=== PATIENT | female | born 1980 | race Caucasian/White ===

== ENCOUNTER 2017-10-15 05:18 | Emergency (ER) | payer MEDICAID, SELFPAY ==
[2017-10-15 05:30] VITALS: BP 140/95; PULSE 95; RESP 20; TEMP 37.7; O2SAT 96; BMI 40.2
--- NOTE | 2017-10-15 05:51 | HMH.EDFEV ---
ED Disposition Clinical Impression: Viral infection Disposition: Home, Self-Care Condition on Discharge: Good Instructions: DI for Fever (Symptom) -- Adult Additional Instructions: advil/tyenol and see pcp as needed Prescriptions: Benzonatate [Tessalon Perle 100mg Cap] 100 mg PO TID #30 cap Oseltamivir Phosphate [Tamiflu 75mg Capsule] 75 mg PO BID #10 cap - Critical Care Critical Care Time: No Attestation: On 10/15/17, the high probability of a clinically significant, sudden or life threatening deterioration of the following system(s) required my full and direct attention, intervention and personal management. The time I documented below is in addition to time spent performing reported procedures but includes the following listed in this critical care notation. Medical Decision Making - Medical Records Medical records reviewed: Yes: I reviewed the patient's medical records. Vital Signs: 10/15/17 05:30 Temperature 99.9 F H Temperature Source Oral Pulse Rate [Right Radial] 95 H Respiratory Rate 20 Blood Pressure [Right Arm] 140/95 Blood Pressure Mean [Right Arm] 110 Blood Pressure Source [Right Arm] Automatic Cuff Blood Pressure Position [Right Arm] Sitting 02 Sat by Pulse Oximetry 96 Oxygen Delivery Method Room Air - Lab Data Lab results reviewed: Yes: I reviewed the patient's lab results. Lab Results 10/15/17 05:50: Influenza Type A Ag Negative, Influenza Type B Ag Negative Orders (Tests/Meds): ED MEDICATIONS Discontinued Medications Generic Name Dose Route Start Last Admin Trade Name Freq PRN Reason Stop Dose Admin Acetaminophen 650 mg 10/15/17 05:59 10/15/17 06:03 Acetaminophen 325mg Tab PO 10/15/17 06:00 650 mg ONCE ONE Administration - Jose Francisco Inquiry Pt receiving controlled substance: No Fever HPI - General Chief Complaint: Fever Stated Complaint: Headache, fever, coughing,achy Time Seen by Provider: 10/15/17 05:51 Mode of Arrival: Ambulatory Source of Information: Patient, Medical Record Limitations: No Limitations Description of Symptoms (Recalled from ER Triage Doc. by RN): Pt. reports headache, chills, nausea, aching all over, and fever. 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 with no rash complaint: fever Onset (ago): day(s) Context: sick contacts Associated symptoms: chills - Related Data Home Medications Medication Instructions Recorded Confirmed omeprazole 20 mg capsule,delayed 20 mg PO ONCE 09/09/17 10/15/17 release Lisinopril [Prinivil 10mg Tablet] 10 mg PO ONCE 10/15/17 10/15/17 Previous Rx's Medication Instructions Recorded Benzonatate [Tessalon Perle 100mg 100 mg PO TID #30 cap 10/15/17 Cap] Oseltamivir Phosphate [Tamiflu 75 mg PO BID #10 cap 10/15/17 75mg Capsule] Allergies Allergy/AdvReac Type Severity Reaction Status Date / Time latex [LATEX] Allergy Unknown Verified 10/15/17 06:03 [facility] History I have reviewed the patient's past medical history: Yes Other Surgeries: Yes: , Dilation and Curettage Amputation: No Fractures: No - Social History Smoking Status: Current every day smoker Tobacco Type: cigarettes Alcohol Intake: never - Psychiatric History Expresses thoughts of harming self/others: None Suicide Plan Description: No Plan Family Hx:: Cancer, Diabetes, Hypertension 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
[2017-10-15 06:52] VITALS: BP 123/79; PULSE 80; RESP 16; TEMP 36.4; O2SAT 99
== END 2017-10-15 06:55 | disposition home or self-care (01) ==
PROVIDERS: Emergency Provider Emergency Medicine; Family Provider Physician Assistant
DX: B34.9 Viral infection, unspecified (principal); Z91.040 Latex allergy status; F17.210 Nicotine dependence, cigarettes, uncomplicated
CPT/HCPCS: 87275; 87276; 99282

== ENCOUNTER → 2018-03-20 11:06 | Outpatient (CLI) | payer MEDICAID, SELFPAY ==
--- NOTE | 2018-03-20 11:12 | XR_ITS ---
XR lumbar spine min 4V Ordering Physician: Jovanni Vilchis MD Patient Age: 37 years: Female HISTORY: ITS.REASON: LOW BACK PAIN W/LEFT SCIATICA Old fall. Left-sided back pain currently. TECHNIQUE: Five-view lumbar spine series. COMPARISON :October 2006 FINDINGS Vertebral bodies intact with normal alignment and no compression fractures. Disc spaces are fairly well maintained with only suggestion perhaps some mild L4/5 disc narrowing to the left lateral projection and lateral view.. borderline narrowing at L2/3 disc Only question scant degenerative facet changes lower L-spine. Minor levocurvature lower L-spine which could be merely positional. Pedicles and transverse processes intact. IUD in place . IMPRESSION: No prominent findings. Minor observations. Minor disc space narrowing L4/5 the left Borderline narrowing narrowing at L2/[address]
--- NOTE | 2018-03-20 11:12 | XR_ITS ---
XR hip LT 2-3V w/pelvis Ordering Physician: Jovanni Vilchis MD Patient Age: 37 years: Female HISTORY: ITS.REASON: LOW BACK PAIN W/LEFT SCIATICA Old fall with hip pain low back pain TECHNIQUE: Left hip: AP and frog-leg view left hip Right hip: AP and frog-leg view COMPARISON :None === LEFT HIP . Left hip intact joint space well maintained. Normal femoral head and neck with normal density & appearance. Slender femoral neck. Trochanteric region intact. Left hip joint space well maintained ==== RIGHT HIP. Right hip hip intact joint space well maintained. Normal femoral head and neck normal appearance. Slender femoral neck bilateral. Trochanteric region intact. Left hip joint space well maintained . ===== AP PELVIS IUD noted in place. Iliac bone and sacrum satisfactory. Question some upper normal sclerotic changes about the margins of left SI joint more so than right . Both SI joints remain patent with no atelectasis. Generous superior acetabular rim bilaterally. No significant appearing hypertrophy Scant levocurvature L-spine noted =IMPRESSION: ====== 1.. Right and left hip WNL. Intact with Joint spaces well-maintained. 2. Osseous pelvis intact. Borderline sclerotic left SI joint more than right. 3. IUD in place.
[2018-03-20 12:42] LABS: Basophils # 0.1 K/mm3 (0-0.2); Basophils % 0.6 % (0.1-2.0); Eosinophils # 0.3 K/mm3 (0.0-0.4); Eosinophils % 3.3 % (0.1-12.0); Hemoglobin 16.6 g/dL (12.2-16.2); Lymphocytes % 22.6 K/mm3 (10-50); Mean Corpuscular HGB Conc 33.3 g/dL (31.8-35.4); Mean Corpuscular Hemoglobin 29.4 pg (27.0-31.2); Mean Corpuscular Volume 88.1 fl (81-99); Monocytes # 0.4 K/mm3 (0.1-1.0); Neutrophils # 6.1 K/mm3 (1.8-7.8); Neutrophils % 68.5 % (37.0-80.0); Platelet Count 212 K/mm3 (142-424); Red Blood Count 5.67 M/mm3 (4.20-5.40); Red Cell Distribution Width 13.4 % (11.5-17.5); White Blood Count 8.8 K/mm3 (4.8-10.8)
[2018-03-20 13:31] LABS: Alanine Aminotransferase 28 U/L (12-78); Albumin Level 4.4 gm/dL (3.4-5.0); Albumin/Globulin Ratio 1.3 (1.1-1.8); Alkaline Phosphatase 109 U/L (46-116); Anion Gap 13.9 mEq/L (5-15); Aspartate Amino Transferase 12 U/L (15-37); Bilirubin,Total 0.4 mg/dL (0.2-1.0); Blood Urea Nitrogen 9 mg/dL (7-18); Calcium 8.9 mg/dL (8.5-10.1); Carbon Dioxide 26 mmol/L (21.0-32.0); Chloride 103 mmol/L (98-107); Chol/HDL Ratio 6.2 (1-3.5); Cholesterol 179 mg/dL (140-200); Creatinine,Serum 0.59 mg/dL (0.55-1.02); Estimated Glomerular Filt Rate 115 ml/min (>60); GFR (African American) 140 ML/MIN (>60); Globulin 3.3 gm/dl (1.3-3.2); Glucose 80 mg/dL (74-106); HDL Cholesterol 29 mg/dL (29-89); LDL Cholesterol 115 mg/dL (0-130); Potassium 3.9 mmoL/L (3.5-5.1); Sodium 139 mmol/L (136-145); Total Protein,Serum 7.7 gm/dL (6.4-8.2); Triglycerides 175 mg/dL (30-200); VLDL Cholesterol 35 mg/dL (0-40)
== END ==
PROVIDERS: PCP Internal Medicine Adolescent Medicine; Visit Provider Internal Medicine Adolescent Medicine
DX: M54.42 Lumbago with sciatica, left side (principal); I10 Essential (primary) hypertension
CPT/HCPCS: 36415; 72110; 73502; 80053; 80061; 85025

== ENCOUNTER → 2018-07-24 08:03 | Outpatient (CLI) | payer MEDICAID, SELFPAY ==
--- NOTE | 2018-07-24 08:25 | US_ITS ---
US abdomen limited History:Right upper quadrant pain Ordering Physician:Jovanni Vilchis MD Patient Age: 37 years Comparison:None Findings: Pancreas:Unremarkable. No obvious mass or abnormal fluid collection. No ductal dilatation Liver:No focal liver lesions demonstrated. Homogeneous echogenicity. No intrahepatic biliary ductal dilatation evident Right Kidney:Unremarkable. Normal size and echogenicity. No hydronephrosis Gallbladder:No gallstones, gallbladder wall thickening, pericholecystic fluid, or biliary dilatation. Impression:Negative gallbladder/right upper quadrant ultrasound
== END ==
PROVIDERS: PCP Internal Medicine Adolescent Medicine; Visit Provider Internal Medicine Adolescent Medicine
DX: R10.11 Right upper quadrant pain (principal)
CPT/HCPCS: 76705

== ENCOUNTER → 2019-01-20 09:58 | Outpatient (CLI) | payer MEDICAID, SELFPAY ==
--- NOTE | 2019-01-20 10:06 | NM_ITS ---
NM hepatobiliary w pharm HISTORY: ITS.REASON: RUQ PAIN ORDERING PHYSICIAN: Jovanni Vilchis MD PATIENT AGE: 38 years COMPARISON: None DOSE: 7.86MCI TC Choletec 2 MCG CCK INJ into RT ANT FINDINGS: Homogeneous activity is present within the hepatic parenchyma. Activity is present in the gallbladder by 10 minutes. Activity is present in the small bowel by 15 minutes. The gallbladder ejection fraction is calculated to be 94% The patient did not report pain or other symptoms during CCK infusion. IMPRESSION: Unremarkable hepatobiliary scan and gallbladder ejection fraction. No evidence of common or cystic duct obstruction with normal gallbladder ejection fraction
--- NOTE | 2019-01-20 10:51 | HMH.ITSHM ---
Current Home Medications as stated by this patient Elizabeth Alejandro or representative personal service. []OMEPRAZOLE LISINOPRIL ASA
== END ==
PROVIDERS: PCP Internal Medicine Adolescent Medicine; Visit Provider Internal Medicine Adolescent Medicine
DX: R10.11 Right upper quadrant pain (principal)
CPT/HCPCS: 78227; A9537; J2805

== ENCOUNTER → 2019-01-26 08:43 | Outpatient (CLI) | payer MEDICAID, SELFPAY ==
[2019-01-26 13:53] LABS: Basophils % 0.3 % (0.1-2.0); Eosinophils # 0.2 K/mm3 (0.0-0.4); Eosinophils % 2.4 % (0.1-12.0); Hematocrit 45.2 % (37.0-47.0); Hemoglobin 15.4 g/dL (12.2-16.2); Lymphocytes # 1.4 K/mm3 (0.7-4.5); Lymphocytes % 20.2 % (10-50); Mean Corpuscular HGB Conc 34.1 g/dL (31.8-35.4); Mean Corpuscular Volume 82.2 fl (81-99); Mean Platelet Volume 8.1 fl (7.4-10.4); Monocytes # 0.4 K/mm3 (0.1-1.0); Monocytes % 5.5 % (1.7-9.3); Neutrophils % 71.5 % (37.0-80.0); Platelet Count 206 K/mm3 (142-424); Red Blood Count 5.51 M/mm3 (4.20-5.40); Red Cell Distribution Width 13.5 % (11.5-17.5); White Blood Count 6.9 K/mm3 (4.8-10.8)
[2019-01-26 16:21] LABS: Anion Gap 15.9 mEq/L (5-15); Blood Urea Nitrogen 10 mg/dL (7-18); Carbon Dioxide 24 mmol/L (21.0-32.0); Chloride 103 mmol/L (98-107); Creatinine,Serum 0.67 mg/dL (0.55-1.02); Potassium 3.9 mmoL/L (3.5-5.1); Sodium 139 mmol/L (136-145)
[2019-01-26 16:22] LABS: Alanine Aminotransferase 35 U/L (12-78); Albumin Level 3.8 gm/dL (3.4-5.0); Albumin/Globulin Ratio 1.2 (1.1-1.8); Alkaline Phosphatase 109 U/L (46-116); Amylase 41 U/L (25-115); Aspartate Amino Transferase 18 U/L (15-37); Bilirubin,Total 0.5 mg/dL (0.2-1.0); Calcium 8.7 mg/dL (8.5-10.1); Estimated Glomerular Filt Rate 99 ml/min (>60); GFR (African American) 120 ML/MIN (>60); Globulin 3.1 gm/dl (1.3-3.2); Glucose 80 mg/dL (74-106); Lipase 88 u/L (73-393); Total Protein,Serum 6.9 gm/dL (6.4-8.2)
== END ==
PROVIDERS: PCP Internal Medicine Adolescent Medicine; Visit Provider Internal Medicine Adolescent Medicine
DX: R10.11 Right upper quadrant pain (principal)
CPT/HCPCS: 36415; 80053; 82150; 83690; 85025

== ENCOUNTER → 2021-02-16 13:21 | Outpatient (CLI) | payer OTHER, SELFPAY ==
--- NOTE | 2021-02-16 13:21 | US_ITS ---
PROCEDURE: US GALLBLADDER CLINICAL INDICATION: right upper quadrant pain COMPARISON: No exams were available for comparison FINDINGS: Pancreas: Unremarkable/Not well seen Liver: There is diminished echogenicity of the liver which is a nonspecific finding but could be seen with hepatitis. No focal liver lesions demonstrated.. There is appropriate direction of blood flow within a non dilated portal vein. Right kidney: Unremarkable appearing. No hydronephrosis. Gallbladder: No stones are evident. There is no gallbladder wall thickening. Common duct is normal in diameter. IMPRESSION: Negative gallbladder ultrasound. Decreased echogenicity of the liver nonspecific but may be seen with hepatitis. Dictated by: Shayne Galarza MD 02/16/2021 16:37 Shayne Galarza MD in [place] 02/16/2021 16:37
== END ==
PROVIDERS: PCP Internal Medicine Adolescent Medicine; Visit Provider Nurse Practitioner Obstetrics & Gynecology
DX: R10.11 Right upper quadrant pain (principal)
CPT/HCPCS: 76705

== ENCOUNTER → 2021-02-22 13:06 | Outpatient (CLI) | payer OTHER, SELFPAY ==
[2021-02-23 10:26] LABS: Hep A Ab, IgM Negative (Negative); Hepatitis B Core Antibody IgM Negative (Negative); Hepatitis B Surface Antigen Negative (Negative); Hepatitis C Antibody <0.1 s/co ratio (0.0-0.9)
== END ==
PROVIDERS: Visit Provider Nurse Practitioner Obstetrics & Gynecology
DX: Z01.419 Encounter for gynecological examination (general) (routine) without abnormal findings (principal); R10.11 Right upper quadrant pain
CPT/HCPCS: 36415; 80074

== ENCOUNTER → 2021-03-02 15:23 | Outpatient (CLI) | payer OTHER, SELFPAY ==
[2021-03-02 15:41] LABS: Basophils # 0.1 K/mm3 (0-0.2); Basophils % 1.1 % (0.1-2.0); Eosinophils # 0.2 K/mm3 (0.0-0.4); Eosinophils % 2.9 % (0.1-12.0); Hematocrit 39.7 % (37.0-47.0); Hemoglobin 15.5 g/dL (12.2-16.2); Lymphocytes # 1.6 K/mm3 (0.7-4.5); Lymphocytes % 23.5 % (10-50); Mean Corpuscular HGB Conc 39.2 g/dL (31.8-35.4); Mean Corpuscular Hemoglobin 34.7 pg (27.0-31.2); Mean Corpuscular Volume 88.5 fl (81-99); Mean Platelet Volume 9.7 fl (7.4-10.4); Monocytes # 0.5 K/mm3 (0.1-1.0); Monocytes % 7.1 % (1.7-9.3); Neutrophils # 4.6 K/mm3 (1.8-7.8); Neutrophils % 65.4 % (37.0-80.0); Platelet Count 173 K/mm3 (142-424); Red Blood Count 4.48 M/mm3 (4.20-5.40); Red Cell Distribution Width 13.5 % (11.5-17.5)
[2021-03-02 15:59] LABS: Chloride 105 mmol/L (98-107); Sodium 141 mmol/L (136-145)
[2021-03-02 16:00] LABS: Potassium 4.3 mmoL/L (3.5-5.1)
[2021-03-02 16:02] LABS: Alanine Aminotransferase 15 U/L (12-78); Albumin Level 4.5 g/dl (3.5-5.0); Albumin/Globulin Ratio 1.9 (1.1-1.8); Alkaline Phosphatase 90 U/L (38-126); Anion Gap 14.3 mEq/L (5-15); Aspartate Amino Transferase 24 U/L (14-36); Bilirubin,Total 0.6 mg/dl (0.2-1.3); Blood Urea Nitrogen 16 mg/dl (7-17); Carbon Dioxide 26 mmol/L (22.0-30.0); Cholesterol 162 mg/dl (140-200); Estimated Glomerular Filt Rate 93 ml/min (>60); GFR (African American) 113 ML/MIN (>60); Globulin 2.4 g/dL (1.3-3.2); Total Protein,Serum 6.9 g/dl (6.3-8.2); Triglycerides 114 mg/dl (30-150); VLDL Cholesterol 23 mg/dL (0-40)
[2021-03-02 16:03] LABS: Calcium 9.1 mg/dl (8.4-10.2); Chol/HDL Ratio 5.1 (1-3.5); Glucose 70 mg/dl (74-100); HDL Cholesterol 32 mg/dl (40-60)
[2021-03-02 16:15] LABS: Direct LDL Cholesterol 99.75 mg/dL (100-129)
[2021-03-02 16:36] LABS: Thyroid Stimulating Hormone 1.36 uIU/mL (0.465-4.68)
[2021-03-02 16:37] LABS: Ferritin 14.1 ng/ml (6.24-137)
== END ==
PROVIDERS: Visit Provider Nurse Practitioner Family
DX: Z00.00 Encounter for general adult medical examination without abnormal findings (principal); R10.11 Right upper quadrant pain; R71.8 Other abnormality of red blood cells
CPT/HCPCS: 80053; 80061; 82728; 84443; 85025

== ENCOUNTER 2021-04-29 09:02 | Emergency (ER) | payer OTHER, SELFPAY ==
[2021-04-29 09:05] VITALS: BP 125/78; PULSE 87; RESP 19; TEMP 37.1; O2SAT 100; BMI 40.2
[2021-04-29 09:54] VITALS: BP 125/78; PULSE 87; RESP 19; TEMP 37.1; O2SAT 100
--- NOTE | 2021-04-29 09:55 | HMH.EDUTC ---
[facility] – [place] Disposition Clinical Impression: Encounter for laboratory testing for COVID-19 virus Disposition: Home, Self-Care Condition on Discharge: Good Instructions: DI for COVID-19 (Suspected or Confirmed ), Preventing the Spread of Coronavirus Discharge Instructions Additional Instructions: *Monitor Temp, Over the counter Motrin or Tylenol as directed/as needed Tylenol every 4 hours and Motrin every 6 hours (as long as your family doctor has told you that you can take it) for fever or pain. and straight to ER if unable to lower temp less than 101.0 after medication given Follow up IMMEDIATELY for new or worsening symptoms or no Noticeable improvement over the next 48-72 hours. 911 for difficulty breathing or swallowing You were tested for today for COVID19 your test result should be back in the next 24-48 hours, you was [facility] you may check that often to see if your results are back You was given a handout with instructions for Self Quarantine and Self isolation for while you wait on test results and what to do if they are positive If you are positive the Health Dept will be contacting you also Make sure to take your Vitamins Vit. C Vit D and Zinc if you can take them Referrals: Jovanni Vilchis MD [Primary Care Provider] - As needed Forms: Work/School Release Time of Disposition: 09:59 Medical Decision Making - Jose Francisco Inquiry Pt receiving controlled substance: No Jose Francisco was queried for this patient: No Vital Signs: 04/29/21 09:05 Temperature 98.7 F Temperature Source Oral Pulse Rate [Right Brachial] 87 Respiratory Rate 19 Blood Pressure [Right Arm] 125/78 Blood Pressure Mean [Right Arm] 93 Blood Pressure Source [Right Arm] Automatic Cuff Blood Pressure Position [Right Arm] Sitting 02 Sat by Pulse Oximetry 100 Oxygen Delivery Method Room Air Orders (Tests/Meds): ORDERS Category Date Time Status Covid-19 Nasal PCR ([facility]) Routine Lab 04/29/21 09:30 Received [facility] [place] HPI - General Stated complaint: weakness, chills Time Seen by Provider: 04/29/21 09:56 Mode of Arrival: Ambulatory Source of Information: Patient Limitations: No Limitations Description of Symptoms (Recalled from Triage Doc. 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 - Related Data Home Medications Medication Instructions Recorded Confirmed omeprazole 20 mg capsule,delayed 20 mg PO ONCE 09/09/17 04/29/21 release Aspirin [Aspirin 81mg chewable 81 mg PO DAILY 04/29/21 04/29/21 tab] lisinopriL [Prinivil 10mg Tablet] 10 mg PO DAILY 04/29/21 04/29/21 Allergies Allergy/AdvReac Type Severity Reaction Status Date / Time latex [LATEX] Allergy Unknown Verified 02/13/21 09:16 - Worker's Comp Is this a Worker's Comp case?: No [facility] History - Hepatitis A Screen Drug use history?: No High risk sexual behaviors?: No History of sexually transmitted infection?: No Currently employed?: No Childcare worker?: No Do you have indoor plumbing?: Yes Do you have electricity?: Yes Attestation statement:: This patient has been screened for Hepatitis A risk factors. I have reviewed the patient's past medical history: Yes Comment: Bleeding Disorder Other Surgeries: Yes: , Dilation and Curettage Amputation: No Fractures: No Comment: D&C to remove cyst from ovaries - Social History Smoking Status: Current every d
== END 2021-04-29 10:02 | disposition home or self-care (01) ==
PROVIDERS: Emergency Provider Nurse Practitioner; PCP Internal Medicine Adolescent Medicine
DX: R53.83 Other fatigue (principal); R50.9 Fever, unspecified; R05 Cough; Z20.822 Contact with and (suspected) exposure to COVID-19
CPT/HCPCS: 99202; G0463; U0003

== ENCOUNTER 2021-05-03 10:05 | Emergency (ER) | payer OTHER, SELFPAY ==
[2021-05-03 11:02] VITALS: BP 141/90; PULSE 80; RESP 18; TEMP 36.7; O2SAT 98; BMI 32.6
--- NOTE | 2021-05-03 11:10 | HMH.EDUTC ---
[facility] – [place] Disposition Clinical Impression: Encounter for laboratory testing for COVID-19 virus Sinusitis Qualifiers: Sinusitis location: unspecified location Chronicity: unspecified Qualified Code(s): J32.9 - Chronic sinusitis, unspecified Disposition: Home, Self-Care Condition on Discharge: Good Instructions: Sinusitis, DI for Sinusitis, Doxycycline, Methylprednisolone, DI for COVID-19 (Suspected or Confirmed ), Preventing the Spread of Coronavirus Discharge Instructions Additional Instructions: *Monitor Temp, Over the counter Motrin or Tylenol as directed/as needed Tylenol every 4 hours and Motrin every 6 hours (as long as your family doctor has told you that you can take it) for fever or pain. and straight to ER if unable to lower temp less than 101.0 after medication given *Warm salt water gargles may help to soothe the throat *Throat Lozenges *Warm fluids like tea with honey may help to soothe the throat *Sleep elevated *Humidifier/Vaporizer *Flonase 2 sprays in each nostril daily but be aware that it may take 2-3 days before you notice improvement Follow up IMMEDIATELY for new or worsening symptoms or no Noticeable improvement over the next 48-72 hours. 911 for difficulty breathing or swallowing You were tested for today for COVID19 your test result should be back in the next 24-48 hours, you was given instructions on how to log on the [facility] portal for your results. If you do not have internet or access you may call the [facility]. You was given a handout with instructions for Self Quarantine and Self isolation for while you wait on test results and what to do if they are positive If you are positive the Health Dept will be contacting you also Make sure to take your Vitamins Vit. C Vit D and Zinc if you can take them Prescriptions: Doxycycline Monohydrate [Doxycycline [place] 100mg Tab] 100 mg PO Q12 7 Days #14 tab Transmission Status: Received by [facility] methylPREDNISolone [Medrol 4mg tab] 4 mg PO DIRECTED #21 tab Transmission Status: Received by [facility] guaiFENesin [Mucinex 600mg tablet] 600 mg PO BID PRN #20 tab PRN Reason: Congestion Transmission Status: Received by [facility] Referrals: Jovanni Vilchis MD [Primary Care Provider] - As needed Forms: Work/School Release Time of Disposition: 11:20 Medical Decision Making - Jose Francisco Inquiry Pt receiving controlled substance: No Jose Francisco was queried for this patient: No Vital Signs: 05/03/21 11:02 Temperature 98.1 F Temperature Source Oral Pulse Rate [Right] 80 Respiratory Rate 18 Blood Pressure [Right Arm] 141/90 H Blood Pressure Mean [Right Arm] 107 02 Sat by Pulse Oximetry 98 - Lab Data Lab results reviewed: Yes: I reviewed the patient's lab results. Orders (Tests/Meds): ORDERS Category Date Time Status Covid-19 Nasal PCR ([facility]) Routine Lab 05/03/21 10:51 Received [facility] [place] HPI - General Stated complaint: pos work covid test Time Seen by Provider: 05/03/21 11:10 Description of Symptoms (Recalled from Triage Doc. by RN): COVID, COUGH, CONGESTION, SINUS PRESSURE, BILATERAL EAR PAIN X1 WEEK HEENT Symptoms (Recalled from RN notes): No Resp Symptoms (Recalled from RN notes): No Skin Symptoms (Recalled from RN notes): No MS Symptoms (Recalled from RN notes): No Functional Status (Recalled from RN notes): WNL - History of Present Illness Provider Complaint: Patient states that she has been having sinus pain and pressure for over a week and felt like she was getting sinus infection states that since then she had several COVID test at work and they was negative but this morning it was positive States that she still feels like the pain and pressure from her sinuses is from a Sinus infection - Related Data Home Medications Medication Instructions Recorded Confirmed omeprazole 20 mg capsule,delayed 20 mg PO ONCE 09/09/17 04/29/21 release Aspirin [Aspirin 81mg chewable 81 mg PO DAILY 04/29/21
[2021-05-03 12:00] VITALS: BP 141/90; PULSE 80; RESP 18; TEMP 36.7; O2SAT 98
--- NOTE | 2021-05-04 09:11 | PC.NURSE ---
informed patent that she is positive
== END 2021-05-03 12:01 | disposition home or self-care (01) ==
PROVIDERS: Emergency Provider Nurse Practitioner; PCP Internal Medicine Adolescent Medicine
DX: U07.1 COVID-19 (principal)
CPT/HCPCS: 99202; G0463; U0003

== ENCOUNTER 2021-05-10 08:20 | Emergency (ER) | payer OTHER, SELFPAY ==
[2021-05-10 08:21] VITALS: BP 139/79; PULSE 77; RESP 18; TEMP 37.4; O2SAT 100; BMI 39.3
--- NOTE | 2021-05-10 08:23 | XR_ITS ---
PROCEDURE: XR CHEST PORTABLE CLINICAL HISTORY: covid, sob COMPARISON: CR CXR CHEST(2 VIEWS-NOT PORTABLE) from 06/10/2014 CR CXR CHEST(2 VIEWS-NOT PORTABLE) from 04/05/2015 FINDINGS: The cardiomediastinal silhouette and pulmonary vascularity are within normal limits. The lungs are clear without infiltrates, suspicious nodules, or pleural effusions. No acute bony abnormalities. IMPRESSION: No acute findings. Dictated by: Shayne Galarza MD 05/10/2021 09:23 Shayne Galarza MD in [place] 05/10/2021 09:23
--- NOTE | 2021-05-10 08:53 | ECG_ITS ---
APPROVED REPORT Exam: Resting ECG HR:62 bpm ECG Measurements Heart Rate 62 AXES WY 150 P 52 QRSd 90 QRS 35 QT 420 T 9 QTc 426 Conclusion Normal sinus rhythm Possible Left atrial enlargement Borderline ECG Electronically signed by : Jovanni Vilchis MD 05/10/2021 20:41:51
--- NOTE | 2021-05-10 08:57 | HMH.EDGENADL ---
ED Disposition Clinical Impression: COVID Disposition: Home, Self-Care Condition on Discharge: Good Instructions: Coronavirus Disease 2019 Referrals: Jovanni Vilchis MD [Primary Care Provider] - 3 days Time of Disposition: 09:58 - Critical Care Critical Care Time: No Attestation: On 05/10/21, the high probability of a clinically significant, sudden or life threatening deterioration of the following system(s) required my full and direct attention, intervention and personal management. The time I documented below is in addition to time spent performing reported procedures but includes the following listed in this critical care notation. Medical Decision Making - Medical Records Medical records reviewed: Yes: I reviewed the patient's medical records. - Jose Francisco Inquiry Pt receiving controlled substance: No Vital Signs: 05/10/21 08:21 Temperature 99.4 F Temperature Source Oral Pulse Rate [Radial] 77 Respiratory Rate 18 Blood Pressure [Right Arm] 139/79 Blood Pressure Mean [Right Arm] 99 Blood Pressure Position [Right Arm] Sitting 02 Sat by Pulse Oximetry 100 Oxygen Delivery Method Room Air - Lab Data Lab Results 05/10/21 09:26: WBC 6.2, RBC 5.34, Hgb 16.6 H, Hct 48.1 H, MCV 90.0, MCH 31.1, MCHC 34.6, RDW 12.5, Plt Count 153, MPV 8.0, Neut % (Auto) 71.6, Lymph % (Auto) 21.2, [place] % (Auto) 6.6, Eos % (Auto) 0.3, Baso % (Auto) 0.3, Neut # (Auto) 4.4, Lymph # (Auto) 1.3, [place] # (Auto) 0.4, Eos # (Auto) 0.0, Baso # (Auto) 0.0 05/10/21 09:26: Sodium 138, Potassium 3.7, Chloride 102, Carbon Dioxide 29, Anion Gap 10.7, BUN 12, Creatinine 0.60, Estimated Creat Clear 194, Estimated GFR 111, Est GFR ( Amer) 135, Glucose 89, Calcium 8.9, Total Bilirubin 0.8, AST 21, ALT 17, Alkaline Phosphatase 82, Total Protein 7.3, Albumin 4.2, Globulin 3.1, Albumin/Globulin Ratio 1.4 Result diagrams: 05/10/21 09:26 09/15/21 09:26 - ECG Data Tracing #1 I reviewed this ECG and interpreted as documented below: Normal sinus rhythm, 60 bpm, no ST elevation or depression, normal intervals, no ectopy. ECG initial impression date: 05/10/21 ECG initial impression time: 08:57 Medical Decision Narrative: 40yo F evaluated for tightness her chest. Patient is in no acute distress and ambulates through the emergency department without difficulty. She speaks in full sentences. She satting 98% on room air. Physical exam is unremarkable. EKG is normal as above. CBC, CMP, chest x-ray are pending. Laboratory studies are benign. Chest x-ray shows no acute finding. Patient is appropriate stable for discharge home. General Adult HPI - General Chief complaint: Chest Pain Stated complaint: covid pos, chest/rib tightness Time Seen by Provider: 05/10/21 08:57 Mode of Arrival: Ambulatory Limitations: No Limitations Description of Symptoms (Recalled from ER Triage Doc. by RN): TO ED PER PVT CAR PT STATES TESTED +COVID LAST . C/O CHEST TIGHTNESS, BURNING, SHARP PAIN IN BACK, COUGH, HEAD PRESSURE. PT DENIES SOB, FEVER - History of Present Illness HPI narrative: 40yo F with past medical history of GERD and hypertension presents the emergency department secondary to tightness in her chest. Patient tested positive for Covid last Saturday. She had received her first dose of Moderna prior to testing positive. She denies any significant fever. She denies nausea/vomiting/diarrhea. No cardiac history. Takes baby aspirin daily. Patient continues to smoke 1 pack/day. - Related Data Home Medications Medication Instructions Recorded Confirmed omeprazole 20 mg capsule,delayed 20 mg PO ONCE 09/09/17 04/29/21 release Aspirin [Aspirin 81mg chewable 81 mg PO DAILY 04/29/21 04/29/21 tab] lisinopriL [Prinivil 10mg Tablet] 10 mg PO DAILY 04/29/21 04/29/21 Previous Rx's Medication Instructions Recorded Doxycycline Monohydrate 100 mg PO Q12 7 Days #14 tab 05/03/21 [Doxycycline [place] 100mg Tab] guaiFENesin [Mucine
[2021-05-10 09:31] VITALS: BP 115/73; PULSE 68; O2SAT 99
[2021-05-10 09:44] LABS: Basophils % 0.3 % (0.1-2.0); Eosinophils % 0.3 % (0.1-12.0); Hematocrit 48.1 % (37.0-47.0); Hemoglobin 16.6 g/dL (12.2-16.2); Lymphocytes # 1.3 K/mm3 (0.7-4.5); Lymphocytes % 21.2 % (10-50); Mean Corpuscular HGB Conc 34.6 g/dL (31.8-35.4); Mean Corpuscular Hemoglobin 31.1 pg (27.0-31.2); Monocytes # 0.4 K/mm3 (0.1-1.0); Monocytes % 6.6 % (1.7-9.3); Neutrophils # 4.4 K/mm3 (1.8-7.8); Neutrophils % 71.6 % (37.0-80.0); Platelet Count 153 K/mm3 (142-424); Red Blood Count 5.34 M/mm3 (4.20-5.40); Red Cell Distribution Width 12.5 % (11.5-17.5); White Blood Count 6.2 K/mm3 (4.8-10.8)
[2021-05-10 09:45] LABS: Alanine Aminotransferase 17 U/L (12-78); Albumin Level 4.2 g/dl (3.5-5.0); Albumin/Globulin Ratio 1.4 (1.1-1.8); Alkaline Phosphatase 82 U/L (38-126); Anion Gap 10.7 mEq/L (5-15); Aspartate Amino Transferase 21 U/L (14-36); Bilirubin,Total 0.8 mg/dl (0.2-1.3); Blood Urea Nitrogen 12 mg/dl (7-17); Calcium 8.9 mg/dl (8.4-10.2); Carbon Dioxide 29 mmol/L (22.0-30.0); Chloride 102 mmol/L (98-107); Creatinine Clearance Estimated 194 mL/min (50-200); Estimated Glomerular Filt Rate 111 ml/min (>60); GFR (African American) 135 ML/MIN (>60); Globulin 3.1 g/dL (1.3-3.2); Glucose 89 mg/dl (74-100); Potassium 3.7 mmoL/L (3.5-5.1); Sodium 138 mmol/L (136-145); Total Protein,Serum 7.3 g/dl (6.3-8.2)
[2021-05-10 10:00] VITALS: BP 112/75; PULSE 70; O2SAT 97
[2021-05-10 10:27] VITALS: BP 132/74; PULSE 78; RESP 18; TEMP 37.2; O2SAT 99
== END 2021-05-10 10:28 | disposition home or self-care (01) ==
PROVIDERS: Emergency Provider Family Medicine; PCP Internal Medicine Adolescent Medicine
DX: U07.1 COVID-19 (principal); K21.9 Gastro-esophageal reflux disease without esophagitis; I10 Essential (primary) hypertension; Z91.040 Latex allergy status; F17.210 Nicotine dependence, cigarettes, uncomplicated
CPT/HCPCS: 71045; 80053; 85025; 93005; 99283

== ENCOUNTER → 2021-08-21 08:49 | Outpatient (CLI) | payer OTHER, SELFPAY | PROVIDERS: Visit Provider Surgery | DX: Z01.812 Encounter for preprocedural laboratory examination (principal); Z11.52 Encounter for screening for COVID-19; Z12.11 Encounter for screening for malignant neoplasm of colon | CPT/HCPCS: C9803; U0003; U0005 ==

== ENCOUNTER 2021-08-23 06:12 | Day surgery (SDC) | payer OTHER, SELFPAY ==
[2021-08-15 13:42] VITALS: BMI 37.8
[2021-08-23] VITALS (7 sets, daily range): BP systolic 94–129; BP diastolic 60–75; PULSE 62–78; RESP 14–18; TEMP 36.1–36.7; O2SAT 98–100
[2021-08-23 06:49] LABS: Urine Pregnancy, HCG Qual. Negative (Negative)
--- NOTE | 2021-08-23 07:23 | HMH.ANESCL ---
[facility] Anesthesia Checklist - Structural Data Admitted From: Home Planned Operative Procedure/s: colonoscopy Consent for Planned Operative Procedure(s) Verified: Yes - Airway Assessment C-Spine Mobility Assessed: Yes TMJ Mobility Assessed: Yes Dentition: Good Dentition - Neurological Assessment Level of Consciousness: Awake, Alert, Appropriate - Anesthesia Plan Anesthesia Risk discussed: Yes Anesthesia Plan: Patient unable to respond/answer ASA Class: II Anesthesia Type: [facility] History I have reviewed the patient's past medical history: Yes Medical History: Reports:: Hypertension Denies:: Cancer, Diabetes Mellitus Type 1, Diabetes Mellitus Type 2, Internal Pacemaker, MRSA, Seizures *Have you ever received a pneumonia vaccine?: No *Have you received a flu vaccine this season?: No Anesthesia experience/problems:: none Other Surgeries: Yes: , Dilation and Curettage. 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
--- NOTE | 2021-08-23 07:58 | HMH.SCOPE ---
- Procedure: Date: 08/23/21 Patient Date of :: 1980 Procedure Performed:: Total colonoscopy Indications:: Patient is a 40-year-old female from [place] referred by Dr. Jovanni Vilchis for colonoscopy. She is employed at [employer]. Apparently she does have some right upper quadrant pain described as burning radiating around her right side and into her back. She did previously undergo colonoscopy and upper endoscopy by Dr. Gaspar. Performing Provider:: Iron Walls MD Referring Provider:: Jovanni Vilchis MD Sedation:: MAC sedation Procedure:: Patient was taken to endoscopy procedure room and positioned in lateral decubitus position. Adequate intravenous sedation was achieved with anesthesia titration of propofol. Variable stiffness Olympus colonoscope was inserted via the anus. It was advanced to the cecum with some minor difficulty due to floppiness and redundancy of the sigmoid colon. Ileocecal valve and appendiceal orifice were clearly identified. Colonic preparation was good and visualization was good. Colonoscope was slowly withdrawn through the colon with careful surveillance. Several biopsies were obtained of the right colon due to her symptomatology. However, this appeared grossly normal. A few random left colon biopsies were obtained. Retroflexion revealed no evidence of any pathologic internal hemorrhoids. Colonoscope was withdrawn. Findings:: Essentially normal colonoscopy Recommendations:: We will plan to follow-up on histopathology of random right and left colon biopsies. Etiology of abdominal pain appears to be likely noncolonic Complications:: None immediately apparent Estimated blood obtained (mL): 2
== END 2021-08-23 08:49 | disposition home or self-care (01) ==
LOC: OUTP 06:13
PROVIDERS: PCP Internal Medicine Adolescent Medicine; Visit Provider Surgery
PROC: 0DJD8ZZ Inspection of Lower Intestinal Tract, Via Natural or Artificial Opening Endoscopic (ICD-10-PCS; CPT 45380; principal; 2021-08-23 07:30)
DX: R10.11 Right upper quadrant pain (principal); K56.2 Volvulus; I10 Essential (primary) hypertension; K21.9 Gastro-esophageal reflux disease without esophagitis; Z80.9 Family history of malignant neoplasm, unspecified; Z83.3 Family history of diabetes mellitus; Z82.49 Family history of ischemic heart disease and other diseases of the circulatory system; Z91.040 Latex allergy status
CPT/HCPCS: 45380; 81025

== ENCOUNTER 2021-10-06 18:05 | Emergency (ER) | payer OTHER, SELFPAY ==
[2021-10-06 18:16] VITALS: BP 126/83; PULSE 77; RESP 18; TEMP 37; O2SAT 99; BMI 35.6
--- NOTE | 2021-10-06 18:16 | HMH.EDUTC ---
[facility] [place] Disposition Clinical Impression: Laryngitis Disposition: Home, Self-Care Condition on Discharge: Good Instructions: DI for Laryngitis Prescriptions: methylPREDNISolone [Medrol 4mg tab] 4 mg PO DIRECTED #21 tab Transmission Status: Pending to [facility] Promethazine/Dextromethorphan [Promethazine-Dm Syrup] 5 ml PO Q4HP PRN 10 Days #180 ml MDD 30ML/DAY PRN Reason: Cough Transmission Status: Pending to [facility] Referrals: Jovanni Vilchis MD [Primary Care Provider] - Time of Disposition: 19:23 Medical Decision Making - Jose Francisco Inquiry Pt receiving controlled substance: No Vital Signs: 10/06/21 18:16 Temperature 98.6 F Temperature Source Oral Pulse Rate [Brachial] 77 Respiratory Rate 18 Blood Pressure [Right Arm] 126/83 Blood Pressure Mean [Right Arm] 97 Blood Pressure Source [Right Arm] Automatic Cuff Blood Pressure Position [Right Arm] Sitting 02 Sat by Pulse Oximetry 99 Oxygen Delivery Method Room Air - Lab Data Lab results reviewed: Yes: I reviewed the patient's lab results. Lab Results 10/06/21 18:20: Group A Strep Rapid Negative Orders (Tests/Meds): ORDERS Category Date Time Status Strep Screen Confirmation Stat Micro 10/06/21 18:20 Received [facility] [place] HPI - General Stated complaint: sore throat Time Seen by Provider: 10/06/21 18:16 - History of Present Illness Provider Complaint: Sore throat X 4 days. Losing voice. Has drainage. Tongue feels weird. No fever. Daughter has strep. Works at [employer] - has had 3 negative COVID tests this week. Onset (ago): day(s) (4) Location: mouth Relieving factors: none Exacerbating factors: none Associated symptoms: malaise Treatments prior to arrival: none - Related Data Home Medications Medication Instructions Recorded Confirmed omeprazole 20 mg capsule,delayed 20 mg PO ONCE 09/09/17 04/29/21 release Aspirin [Aspirin 81mg chewable 81 mg PO DAILY 04/29/21 04/29/21 tab] lisinopriL [Prinivil 10mg Tablet] 10 mg PO DAILY 04/29/21 04/29/21 Previous Rx's Medication Instructions Recorded Promethazine/Dextromethorphan 5 ml PO Q4HP PRN 10 Days #180 ml 02/11/22 [Promethazine-Dm Syrup] MDD 30ML/DAY methylPREDNISolone [Medrol 4mg 4 mg PO DIRECTED #21 tab 10/06/21 tab] Allergies Allergy/AdvReac Type Severity Reaction Status Date / Time latex [LATEX] Allergy Unknown Verified 08/15/21 13:27 [facility] History - Hepatitis A Screen Attestation statement:: This patient has been screened for Hepatitis A risk factors. I have reviewed the patient's past medical history: Yes Medical History: Reports:: Hypertension Denies:: Cancer, Diabetes Mellitus Type 1, Diabetes Mellitus Type 2, Internal Pacemaker, MRSA, Seizures Comment: Bleeding Disorder Other Surgeries: Yes: , Dilation and Curettage. No: Pacemaker Amputation: No Fractures: No Comment: D&C to remove cyst from ovaries - Social History Smoking Status: Current every day smoker Tobacco Type: cigarettes # Packs/Day (cigarettes): 1 Alcohol Intake: never Substance Use Type: denies use Occupational Status: other Housing: house Household Members: spouse, family Family Hx:: Cancer, Diabetes, Hypertension [employer] history: Abnormal Uterine Bleeding Comment: LAST PAP:12/17/2016,WNL. 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 Negative ,Tesfaye's Palsey during ,PIH ROS Obtained: Yes All systems reviewed & no additional complaints - Constitutional Constitutional: Denies fever(s), Reports malaise - ENT Ears, Nose, Mouth, and Throat: Reports sore throat, Reports throat swelling Physical Exam - General General appearance: alert, in no apparent distress - Head Head exam: normocephalic - Eye Eye exam: Present: PERRL - ENT ENT exam: Present: mucous membranes moist, TM's normal bilaterally - Expanded ENT Exam Nose exam: Absent: sinus tenderness Throat exam: Present: tonsillar erythema, tonsillomegaly - Neck Neck exam: Present: normal insp
[2021-10-06 19:17] LABS: Strep Scrn Group A (Rapid) Negative (Negative)
[2021-10-06 19:29] VITALS: BP 126/83; PULSE 77; RESP 18; TEMP 37; O2SAT 99
== END 2021-10-06 19:29 | disposition home or self-care (01) ==
PROVIDERS: Emergency Provider Physician Assistant; PCP Internal Medicine Adolescent Medicine
DX: J04.0 Acute laryngitis (principal); I10 Essential (primary) hypertension; F17.210 Nicotine dependence, cigarettes, uncomplicated
CPT/HCPCS: 87430; 96372; 99202; G0463; J1040

== ENCOUNTER 2021-11-21 09:42 | Emergency (ER) | payer OTHER, SELFPAY ==
[2021-11-21 11:13] VITALS: BP 155/89; PULSE 87; RESP 16; TEMP 37; O2SAT 98; BMI 37.5
[2021-11-21 11:25] LABS: UTC Influenza A Antigen Negative (Negative); UTC Influenza B Antigen Negative (Negative)
--- NOTE | 2021-11-21 11:47 | HMH.EDUTC ---
[facility] [place] Clinical Impression: Viral upper respiratory illness Disposition: Home, Self-Care Condition on Discharge: Good Instructions: DI for Viral Upper Respiratory Infection -- Adult, Cough Additional Instructions: *Monitor Temp, Over the counter Motrin or Tylenol as directed/as needed Tylenol every 4 hours and Motrin every 6 hours (as long as your family doctor has told you that you can take it) for fever or pain. and straight to ER if unable to lower temp less than 101.0 after medication given *Warm salt water gargles may help to soothe the throat *Throat Lozenges *Warm fluids like tea with honey may help to soothe the throat *Sleep elevated *Humidifier/Vaporizer *Flonase 2 sprays in each nostril daily but be aware that it may take 2-3 days before you notice improvement Take medication as prescribed Follow up IMMEDIATELY for new or worsening symptoms or no Noticeable improvement over the next 48-72 hours. 911 for difficulty breathing or swallowing Prescriptions: Promethazine/Dextromethorphan [Promethazine-Dm Syrup] 2.5 - 5 ml PO Q4H PRN #150 ml PRN Reason: Cough Transmission Status: Pending to [facility] Referrals: Jovanni Vilchis MD [Primary Care Provider] - As needed Time of Disposition: 11:53 Medical Decision Making - Jose Francisco Inquiry Pt receiving controlled substance: No Jose Francisco was queried for this patient: No Vital Signs: 11/21/21 11:13 Temperature 98.6 F Temperature Source Oral Pulse Rate [Left] 87 Respiratory Rate 16 Blood Pressure [Right Arm] 155/89 H Blood Pressure Mean [Right Arm] 111 02 Sat by Pulse Oximetry 98 - Lab Data Lab results reviewed: Yes: I reviewed the patient's lab results. Lab Results 11/21/21 11:12: Influenza Type A Ag Negative, Influenza Type B Ag Negative [facility] [place] - General Stated complaint: congestion, h/a, cough Time Seen by Provider: 11/21/21 11:47 Mode of Arrival: Ambulatory Source of Information: Patient Limitations: No Limitations Description of Symptoms (Recalled from Triage Doc. by RN): pt c/o nasal congestion, VASQUEZ and cough x1wk. HEENT Symptoms (Recalled from RN notes): Yes Resp Symptoms (Recalled from RN notes): Yes Skin Symptoms (Recalled from RN notes): No MS Symptoms (Recalled from RN notes): No Functional Status (Recalled from RN notes): wnl - History of Present Illness Provider Complaint: Patient states that she has been havign sinus congestion and drainage along with cough States that her daughter is having similar symptoms State that today she was still not feeling well so she came in to get checked - Related Data Home Medications Medication Instructions Recorded Confirmed omeprazole 20 mg capsule,delayed 20 mg PO ONCE 09/09/17 04/29/21 release Aspirin [Aspirin 81mg chewable 81 mg PO DAILY 04/29/21 04/29/21 tab] lisinopriL [Prinivil 10mg Tablet] 10 mg PO DAILY 04/29/21 04/29/21 Previous Rx's Medication Instructions Recorded Promethazine/Dextromethorphan 5 ml PO Q4HP PRN 10 Days #180 ml 10/06/21 [Promethazine-Dm Syrup] MDD 30ML/DAY methylPREDNISolone [Medrol 4mg 4 mg PO DIRECTED #21 tab 10/06/21 tab] Promethazine/Dextromethorphan 2.5 - 5 ml PO Q4H PRN #150 ml 11/21/21 [Promethazine-Dm Syrup] Allergies Allergy/AdvReac Type Severity Reaction Status Date / Time latex [LATEX] Allergy Unknown Verified 08/15/21 13:27 - Worker's Comp Is this a Worker's Comp case?: No [facility] History - Hepatitis A Screen Drug use history?: No High risk sexual behaviors?: No History of sexually transmitted infection?: No Currently employed?: No Childcare worker?: No Do you have indoor plumbing?: Yes Do you have electricity?: Yes Attestation statement:: This patient has been screened for Hepatitis A risk factors. I have reviewed the patient's past medical history: Yes Medical History: Reports:: Hypertension Denies:: Cancer, Diabetes Mellitus Type 1, Diabetes Mellitus Type 2, Internal P
[2021-11-21 12:06] VITALS: BP 155/89; PULSE 87; RESP 16; TEMP 37
== END 2021-11-21 12:07 | disposition home or self-care (01) ==
PROVIDERS: Emergency Provider Nurse Practitioner; PCP Internal Medicine Adolescent Medicine
DX: J06.9 Acute upper respiratory infection, unspecified (principal); I10 Essential (primary) hypertension; F17.210 Nicotine dependence, cigarettes, uncomplicated
CPT/HCPCS: 87804; 99212; G0463

== ENCOUNTER 2021-12-14 15:22 | Emergency (ER) | payer OTHER, SELFPAY ==
[2021-12-14 15:22] VITALS: BP 127/76; PULSE 84; RESP 18; TEMP 37.3; O2SAT 98; BMI 37.7
--- NOTE | 2021-12-14 16:01 | HMH.EDUTC ---
[facility] [place] Clinical Impression: Sinusitis Qualifiers: Sinusitis location: unspecified location Chronicity: unspecified Qualified Code(s): J32.9 - Chronic sinusitis, unspecified Disposition: Home, Self-Care Condition on Discharge: Good Instructions: Sinusitis, DI for Sinusitis Additional Instructions: *Monitor Temp, Over the counter Motrin or Tylenol as directed/as needed Tylenol every 4 hours and Motrin every 6 hours (as long as your family doctor has told you that you can take it) for fever or pain. and straight to ER if unable to lower temp less than 101.0 after medication given *Warm salt water gargles may help to soothe the throat *Throat Lozenges *Warm fluids like tea with honey may help to soothe the throat *Sleep elevated *Humidifier/Vaporizer Take medication as prescribed Follow up IMMEDIATELY for new or worsening symptoms or no Noticeable improvement over the next 48-72 hours. 911 for difficulty breathing or swallowing Prescriptions: methylPREDNISolone [Medrol 4mg tab] 4 mg PO DIRECTED #21 tab Transmission Status: Pending to [facility] Azithromycin [Z-Derrick 250mg Tab] 250 mg PO DIRECTED #6 tab Transmission Status: Pending to [facility] Referrals: Jovanni Vilchis MD [Primary Care Provider] - As needed Time of Disposition: 16:09 Medical Decision Making - Jose Francisco Inquiry Pt receiving controlled substance: No Jose Francisco was queried for this patient: No Vital Signs: 12/14/21 15:22 Temperature 99.2 F Temperature Source Oral Pulse Rate [Left Radial] 84 Respiratory Rate 18 Blood Pressure [Right Arm] 127/76 Blood Pressure Mean [Right Arm] 93 Blood Pressure Source [Right Arm] Automatic Cuff Blood Pressure Position [Right Arm] Sitting 02 Sat by Pulse Oximetry 98 Oxygen Delivery Method Room Air [facility] [place] - General Chief complaint: Upper Respiratory Infection Stated complaint: ear ache Time Seen by Provider: 12/14/21 16:05 Mode of Arrival: Ambulatory Source of Information: Patient Limitations: No Limitations Description of Symptoms (Recalled from Triage Doc. by RN): SINUS INFECTION, EARS HURTING, DRAINAGE IN EAR, SINUS PRESSURE HEENT Symptoms (Recalled from RN notes): Yes Resp Symptoms (Recalled from RN notes): No Skin Symptoms (Recalled from RN notes): No MS Symptoms (Recalled from RN notes): No Functional Status (Recalled from RN notes): N/A - History of Present Illness Provider Complaint: Patient states that she has been having sinus pain and pressure and pressure like feeling in both ears States that she noticed she had some drainage from her left ear earlier today States that she feels like she has a sinus infection and the fluid will move when she moves or turns her head - Related Data Home Medications Medication Instructions Recorded Confirmed omeprazole 20 mg capsule,delayed 20 mg PO ONCE 09/09/17 04/29/21 release Aspirin [Aspirin 81mg chewable 81 mg PO DAILY 04/29/21 04/29/21 tab] lisinopriL [Prinivil 10mg Tablet] 10 mg PO DAILY 04/29/21 04/29/21 Previous Rx's Medication Instructions Recorded Promethazine/Dextromethorphan 5 ml PO Q4HP PRN 10 Days #180 ml 10/06/21 [Promethazine-Dm Syrup] MDD 30ML/DAY methylPREDNISolone [Medrol 4mg 4 mg PO DIRECTED #21 tab 10/06/21 tab] Promethazine/Dextromethorphan 2.5 - 5 ml PO Q4H PRN #150 ml 11/21/21 [Promethazine-Dm Syrup] Azithromycin [Z-Derrick 250mg Tab] 250 mg PO DIRECTED #6 tab 12/14/21 methylPREDNISolone [Medrol 4mg 4 mg PO DIRECTED #21 tab 12/14/21 tab] Allergies Allergy/AdvReac Type Severity Reaction Status Date / Time latex [LATEX] Allergy Unknown Verified 08/15/21 13:27 - Worker's Comp Is this a Worker's Comp case?: No Is this an H Worker's Comp?: No Is this a [place] Worker's Comp?: No [facility] History - Hepatitis A Screen Drug use history?: No High risk sexual behaviors?: No History of sexually transmitted infection?: No Currently employed?:
[2021-12-14 16:14] VITALS: BP 127/76; PULSE 84; RESP 17; TEMP 37.2; O2SAT 99
== END 2021-12-14 16:18 | disposition home or self-care (01) ==
PROVIDERS: Emergency Provider Nurse Practitioner; PCP Internal Medicine Adolescent Medicine
DX: J32.9 Chronic sinusitis, unspecified (principal); H92.02 Otalgia, left ear; J06.9 Acute upper respiratory infection, unspecified; I10 Essential (primary) hypertension; D68.9 Coagulation defect, unspecified; F17.210 Nicotine dependence, cigarettes, uncomplicated; Z79.52 Long term (current) use of systemic steroids; Z79.82 Long term (current) use of aspirin; Z79.899 Other long term (current) drug therapy; Z91.040 Latex allergy status
CPT/HCPCS: 99213; G0463

== ENCOUNTER 2023-07-08 09:27 | Emergency (ER) | payer OTHER, SELFPAY ==
--- NOTE | 2023-07-08 09:39 | EXP.UTC ---
Discharge Plan Disposition Patient Disposition: Home, Self-Care Condition: Good Prescriptions Prescriptions: New benzonatate [benzonatate] 100 mg capsule 100 mg PO TIDP PRN (Reason: Cough) Qty: 30 0RF methylprednisolone 4 mg Tablets,Dose Pack 4 mg PO DIRECTED Qty: 21 0RF amoxicillin [amoxicillin] 875 mg tablet 875 mg PO Q12H Qty: 20 0RF No Action omeprazole 20 mg capsule,delayed release(DR/EC) 20 mg PO ONCE lisinopril 10 MG tablet 10 mg PO DAILY aspirin 81 MG tablet,chewable 81 mg PO DAILY Referrals Follow up/Referrals: Kiana Reinoso [Primary Care Provider] - See instructions Activity Restrictions/Add. Instructions Additional Instructions/Restrictions: Drink plenty of fluids. Take tylenol or ibuprofen for pain or fever. Take the medications as directed. Follow up with your regular doctor. GO TO THE ER FOR ANY WORSENING SYMPTOMS Clinical Impressions Clinical Impression: Sinusitis, Bronchitis Stand Alone Forms Stand Alone Forms: Work/School Release Instructions Patient Instructions: Sinusitis, DI for Sinusitis Discharge ED Provider: Steve Cooper [facility] General Stated complaint: congestion, cough Time Seen by Provider: 07/08/23 09:39 History of Present Illness Provider Complaint: She states that for the past 2 weeks she has had sinus congestion. She states that his symptoms are worsening. Related Data Home Medications Medication Instructions Recorded Confirmed omeprazole 20 mg capsule,delayed 20 mg PO ONCE GERD 09/09/17 07/08/23 release aspirin 81 mg chewable tablet 81 mg PO DAILY Heart disease 04/29/21 07/08/23 lisinopril 10 mg tablet 10 mg PO DAILY Hypertension 04/29/21 07/08/23 Previous Rx's Medication Instructions Recorded amoxicillin 875 mg tablet 875 mg PO Q12H #20 tabs 07/08/23 benzonatate 100 mg capsule 100 mg PO TIDP PRN Cough #30 caps 07/08/23 methylprednisolone 4 mg tablets in 4 mg PO DIRECTED #21 tabs 07/08/23 a dose pack Allergies Allergy/AdvReac Type Severity Reaction Status Date / Time latex [LATEX] Allergy Unknown Verified 07/08/23 09:[address] [facility] Disclaimer: The information contained in this section may have been updated after the patient was seen, as this information can be updated by other users. 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 current occupational exposures/hazards: No caffeine: Yes ROS Obtained: Yes All systems reviewed & no additional complaints except as documented Constitutional Constitutional: Reports poor appetite Eyes Eyes: Reports system reviewed and no additional complaints, except as documented ENT Ears, Nose, Mouth, and Throat: Reports as per HPI Cardiovascular Cardiovascular: Reports system reviewed and no additional complaints, except as documented and Denies chest pain Respiratory Respiratory: Denies shortness of breath, Reports chest congestion, Reports cough, Denies stridor and Denies wheezing Gastrointestinal Gastrointestingal: Reports system reviewed and no additional complaints, except as documented; Denies abdominal pain, diarrhea or vomiting Musculoskeletal Musculoskeletal: Reports system reviewed and no additional complaints, except as documented and Denies arthralgias Integumentary/Breasts Skin/Breast: Reports system reviewed and no additional complaints, except as documented and Denies rash Neurologic Neurologic: Denies paresthesias Allergic/Immunologic Allergic/Immunologic: Denies wheezing Physical Exam General General appearance: alert and in no apparent distress Head Head exam: atraumatic
[2023-07-08 09:40] VITALS: BP 134/94; PULSE 77; RESP 18; TEMP 36.9; O2SAT 98; BMI 35.5
[2023-07-08 10:12] VITALS: BP 134/94; PULSE 77; RESP 18; TEMP 36.6; O2SAT 98
== END 2023-07-08 10:12 | disposition home or self-care (01) ==
PROVIDERS: Emergency Provider Nurse Practitioner Family; PCP Nurse Practitioner Family
DX: J20.9 Acute bronchitis, unspecified (principal); J01.90 Acute sinusitis, unspecified; R09.81 Nasal congestion; R05.9 Cough, unspecified; F17.210 Nicotine dependence, cigarettes, uncomplicated
CPT/HCPCS: 99212; 99214; G0463

== ENCOUNTER 2024-03-08 08:04 | Emergency (ER) | payer OTHER, SELFPAY ==
--- NOTE | 2024-03-08 08:09 | EXP.UTC ---
Discharge Plan Disposition Patient Disposition: Home, Self-Care Condition: Good Prescriptions Prescriptions: New benzonatate 100 mg capsule 100 mg PO TIDP PRN (Reason: Cough) Qty: 30 0RF methylprednisolone 4 mg Tablets,Dose Pack 4 mg PO DIRECTED 6 Days Qty: 21 0RF Rx Instructions: Take 1 pack as directed for 6 days cefdinir 300 mg capsule 300 mg PO BID Qty: 20 0RF No Action omeprazole 20 mg capsule,delayed release(DR/EC) 20 mg PO ONCE lisinopril 10 MG tablet 10 mg PO DAILY aspirin 81 MG tablet,chewable 81 mg PO DAILY benzonatate [benzonatate] 100 mg capsule 100 mg PO TIDP PRN (Reason: Cough) Qty: 30 0RF methylprednisolone 4 mg Tablets,Dose Pack 4 mg PO DIRECTED Qty: 21 0RF amoxicillin [amoxicillin] 875 mg tablet 875 mg PO Q12H Qty: 20 0RF Referrals Follow up/Referrals: Kiana Reinoso [Primary Care Provider] - See instructions Activity Restrictions/Add. Instructions Additional Instructions/Restrictions: Drink plenty of fluids. Take tylenol or ibuprofen for pain or fever. Take the medications as directed. Follow up with your regular doctor. GO TO THE ER FOR ANY WORSENING SYMPTOMS We will culture the urine. That will tell what bacteria is causing your infection and which antibiotics will treat it best. Sometimes the first antibiotic we prescribe turns out to not work against different bacteria. So, make sure you follow up within 3 days if you are not getting better. Clinical Impressions Clinical Impression: Sinusitis, UTI (urinary tract infection), Otitis media Instructions Patient Instructions: Middle Ear Infection, Urine Culture, DI for Sinusitis, DI for Urinary Tract Infection (UTI) Discharge ED Provider: Steve Cooper [facility] General Stated complaint: sinus/ear congestion Time Seen by Provider: 03/08/24 08:09 History of Present Illness Provider Complaint: She states that for the past 3 days she has had worsening right ear pain and sinus congestion. She also has dysuria and urinary frequency. Related Data Home Medications Medication Instructions Recorded Confirmed omeprazole 20 mg capsule,delayed 20 mg PO ONCE GERD 09/09/17 03/08/24 release aspirin 81 mg chewable tablet 81 mg PO DAILY Heart disease 04/29/21 07/08/23 lisinopril 10 mg tablet 10 mg PO DAILY Hypertension 04/29/21 03/08/24 Previous Rx's Medication Instructions Recorded amoxicillin 875 mg tablet 875 mg PO Q12H #20 tabs 07/08/23 benzonatate 100 mg capsule 100 mg PO TIDP PRN Cough #30 caps 07/08/23 methylprednisolone 4 mg tablets in 4 mg PO DIRECTED #21 tabs 07/08/23 a dose pack benzonatate 100 mg capsule 100 mg PO TIDP PRN Cough #30 caps 03/08/24 cefdinir 300 mg capsule 300 mg PO BID #20 caps 03/08/24 methylprednisolone 4 mg tablets in 4 mg PO DIRECTED 6 days #21 tabs 03/08/24 a dose pack Allergies Allergy/AdvReac Type Severity Reaction Status Date / Time latex [LATEX] Allergy Unknown Verified 07/08/23 09:47 [facility] Disclaimer: The information contained in this section may have been updated after the patient was seen, as this information can be updated by other users. 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 current occupational exposures/hazards: No caffeine: Yes ROS Obtained: Yes All systems reviewed & no additional complaints except as documented Constitutional Constitutional: Reports poor appetite Eyes Eyes: Reports system reviewed and no additional complaints, except as documented ENT Ears, Nose, Mouth, and Throat: Reports as per HPI Cardiovascular Cardiovascular: Reports system reviewed and no additional complaints, except as documented and Denies chest pain Respiratory Respiratory: Denies shortness of breath, Denies chest congestion, Reports cough, Denies stridor and Denies wheezing Gastrointestinal Gastrointestingal: Reports system reviewed and no additional complaints, except as documented; Denies abdominal pain, diarrhea or vomiting Genitourinary Female Genitourinary: Reports as per HPI, Reports dysuria and Reports urinary urgency Musculoskeletal Musculoskeletal: Reports system reviewed and no additional complaints, except as documented and Denies arthralgias Integumentary/Breasts Skin/Breast: Reports system reviewed and no additional complaints, except as documented and Denies rash Neurologic Neurologic: Denies paresthesias Allergic/Immunologic Allergic/Immunologic: Denies wheezing Physical Exam General General appearance: alert and in no apparent distress Head Head exam: atraumatic, normocephalic and normal inspection Eye Eye exam: Present normal appearance; Absent PERRL or EOMI ENT ENT exam: Present mucous membranes moist and normal external ear exam Expanded ENT Exam TM/Canal exam: Bilateral TM: erythema, bulging and effusion Nose exam: Absent sinus tenderness Nasal speculum exam: Bilateral: normal Mouth exam: Present normal external inspection and other; Absent drooling Teeth exam: Present normal inspection Throat exam: Present tonsillar erythema and tonsillomegaly Neck Neck exam: Present normal inspection, full ROM and trachea midline; Absent tenderness, meningismus or lymphadenopathy Chest Chest inspection: Present normal inspection and symmetric chest wall rise; Absent tenderness Respiratory Respiratory exam: Present normal lung sounds bilaterally; Absent respiratory distress, wheezes or stridor Cardiovascular Cardiovascular exam: Present regular rate, normal rhythm and normal heart sounds; Absent tachycardia or irregular rhythm Abdominal Exam Abdominal exam: Present soft and normal bowel sounds; Absent distention, tenderness, guarding, rebound or rigidity Extremities Exam Extremities exam: Present normal inspection and normal capillary refill; Absent tenderness, joint swelling or calf tenderness Back Exam Back exam: Present normal inspection and full ROM; Absent tenderness, CVA tenderness (R) or CVA tenderness (L) Neurological Exam Neurological exam: Present alert, oriented X3, CN II-XII intact, normal gait and reflexes normal; Absent motor sensory deficit Psychiatric Psychiatric exam: Present normal affect and normal mood Skin Skin exam: Present warm, dry, intact and normal color Lymphatic Lymphatic Findings: no adenopathy Medical Decision Making Medical Records Medical records reviewed: No I reviewed the patient's medical records. Jose Francisco Inquiry Pt receiving controlled substance: No Lab Data Lab results reviewed: Yes I reviewed the patient's lab results.
[2024-03-08 08:13] VITALS: BP 134/65; PULSE 85; RESP 18; TEMP 37.1; O2SAT 100; BMI 40.8
[2024-03-08 08:21] LABS: Apearance,Urine Clear (Clear); Color,Urine Dark Yellow (Yellow)
[2024-03-08 08:22] LABS: Bilirubin,Urine Negative (Negative); Blood, Urine 1+ (Negative); Glucose,Urine (UA) Negative (Negative); Ketones,Urine Negative (Negative); Protein,Urine Negative (Negative); Specific Gravity, Urine 1.025 (1.005-1.030); UTC Leukocyte Esterase,Urine Negative (Negative); UTC Nitrate,Urine Negative (Negative); Urobilinogen,Urine 0.2 EU/dl (0.2)
[2024-03-08 08:47] VITALS: BP 134/65; PULSE 85; RESP 18; TEMP 37.1; O2SAT 100
== END 2024-03-08 08:48 | disposition home or self-care (01) ==
PROVIDERS: Emergency Provider Nurse Practitioner Family; PCP Nurse Practitioner Family
DX: N39.0 Urinary tract infection, site not specified (principal); B96.89 Other specified bacterial agents as the cause of diseases classified elsewhere; R30.0 Dysuria; R35.0 Frequency of micturition; H66.91 Otitis media, unspecified, right ear; J01.90 Acute sinusitis, unspecified; H92.01 Otalgia, right ear
CPT/HCPCS: 81003; 87086; 99212; 99214; G0463

== ENCOUNTER 2024-07-25 08:04 | Emergency (ER) | payer OTHER, SELFPAY ==
[2024-07-25 08:19] VITALS: BP 143/90; PULSE 75; RESP 20; TEMP 36.9; O2SAT 98; BMI 40.5
--- NOTE | 2024-07-25 08:44 | EXP.UTC ---
Discharge Plan Disposition Patient Disposition: Home, Self-Care Condition: Good Prescriptions Prescriptions: New promethazine-DM 6.25-15 mg/5 mL Syrup 5 ml PO Q6H PRN (Reason: Cough) Qty: 240 0RF methylprednisolone 4 mg Tablets,Dose Pack 4 mg PO DIRECTED 6 Days Qty: 21 0RF Rx Instructions: Take 1 pack as directed for 6 days amoxicillin-pot clavulanate 875-125 mg Tablet 1 tab PO Q12H Qty: 20 0RF No Action omeprazole 20 mg capsule,delayed release(DR/EC) 20 mg PO ONCE lisinopril 10 MG tablet 10 mg PO DAILY aspirin 81 MG tablet,chewable 81 mg PO DAILY Referrals Follow up/Referrals: Kiana Reinoso [Primary Care Provider] - See instructions Activity Restrictions/Add. Instructions Additional Instructions/Restrictions: Drink plenty of fluids. Take tylenol or ibuprofen for pain or fever. Take the medications as directed. Follow up with your regular doctor. GO TO THE ER FOR ANY WORSENING SYMPTOMS The cough medication (promethazine dm) will make you drowsy, so don't drive or operate heavy machinery after taking it. Clinical Impressions Clinical Impression: Bronchitis, Sinusitis Instructions Patient Instructions: Sinusitis, DI for Sinusitis, Promethazine Print Language Print Language: Uzbek Discharge ED Provider: Steve Cooper [facility] General Stated complaint: cough, sinus pressure Mode of Arrival: Ambulatory Source of Information: Patient Time Seen by Provider: 07/25/24 08:44 Description of Symptoms (Recalled from Triage Doc. by RN): ? SINUS INFECTION, RATTLE IN CHEST, CONSTANT COUGH HEENT Symptoms (Recalled from RN notes): No Resp Symptoms (Recalled from RN notes): Yes Skin Symptoms (Recalled from RN notes): No MS Symptoms (Recalled from RN notes): No Functional Status (Recalled from RN notes): WNL Related Data Home Medications ?Medication ?Instructions ?Recorded ?Confirmed omeprazole 20 mg capsule,delayed 20 mg PO ONCE GERD 09/09/17 07/25/24 release aspirin 81 mg chewable tablet 81 mg PO DAILY Heart disease 04/29/21 07/25/24 lisinopril 10 mg tablet 10 mg PO DAILY Hypertension 04/29/21 07/25/24 Previous Rx's ?Medication ?Instructions ?Recorded amoxicillin 875 mg-potassium 1 tab PO Q12H #20 tabs 07/25/24 clavulanate 125 mg tablet methylprednisolone 4 mg tablets in 4 mg PO DIRECTED 6 days #21 tabs 07/25/24 a dose pack promethazine-DM 6.25 mg-15 mg/5 mL 5 ml PO Q6H PRN Cough #240 mL 07/25/24 oral syrup Allergies Allergy/AdvReac Type Severity Reaction Status Date / Time latex (LATEX) Allergy Unknown Verified 07/08/23 09:47 Worker's Comp Is this a Worker's Comp case?: No [facility] Disclaimer: The information contained in this section may have been updated after the patient was seen, as this information can be updated by other users. 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 current occupational exposures/hazards: No caffeine: Yes ROS Obtained: Yes All systems reviewed & no additional complaints except as documented Constitutional Constitutional: Reports poor appetite Eyes Eyes: Reports system reviewed and no additional complaints, except as documented ENT Ears, Nose, Mouth, and Throat: Reports as per HPI Cardiovascular Cardiovascular: Reports system reviewed and no additional complaints, except as documented and Denies chest pain Respiratory Respiratory: Denies shortness of breath, Reports chest congestion, Reports cough, Denies stridor and Denies wheezing Gastrointestinal Gastrointestingal: Reports system reviewed and no additional complaints, except as documented; Denies abdominal pain, diarrhea or vomiting Musculoskeletal Musculoskeletal: Reports system reviewed and no additional complaints, except as documented and Denies arthralgias Integumentary/Breasts Skin/Breast: Reports system reviewed and no additional complaints, except as documented and Denies rash Neurologic Neurologic: Denies paresthesias Allergic/Immunologic Allergic/Immunologic: Denies wheezing Physical Exam General General appearance: alert and in no apparent distress Eye Eye exam: Present normal appearance, PERRL and EOMI ENT ENT exam: Present mucous membranes moist and normal external ear exam Expanded ENT Exam External ear exam: Present normal external inspection TM/Canal exam: Bilateral TM: erythema and bulging Nose exam: Absent sinus tenderness Nasal speculum exam: Bilateral: normal Mouth exam: Present normal external inspection; Absent drooling Teeth exam: Present normal inspection Throat exam: Present tonsillar erythema and tonsillomegaly Neck Neck exam: Present normal inspection, full ROM and trachea midline; Absent tenderness, lymphadenopathy or thyromegaly Chest Chest inspection: Present normal inspection and symmetric chest wall rise; Absent tenderness or rash Respiratory Respiratory exam: Present normal lung sounds bilaterally; Absent respiratory distress, wheezes, stridor or accessory muscle use Cardiovascular Cardiovascular exam: Present regular rate, normal rhythm and normal heart sounds Abdominal Exam Abdominal exam: Present soft; Absent distention, tenderness, guarding, rebound or rigidity Extremities Exam Extremities exam: Present normal inspection, full ROM and normal capillary refill; Absent tenderness or calf tenderness Back Exam Back exam: Present normal inspection and full ROM; Absent tenderness Neurological Exam Neurological exam: Present alert and oriented X3 Psychiatric Psychiatric exam: Present normal affect and normal mood Skin Skin exam: Present warm, dry, intact and normal color Lymphatic Lymphatic Findings: no adenopathy Medical Decision Making Medical Records Medical records reviewed: No I reviewed the patient's medical records. Screening: Per USPSTF and CDC recommendations, given the prevalence of disease in our region, it is our hospital?s policy to screen for HIV and viral Hepatitis for all patients aged 18 and over and those with ongoing risk factors. Jose Francisco Inquiry Pt receiving controlled substance: No Vital Signs: 07/25/24 08:19 Temperature 98.4 F Temperature Source Oral Pulse Rate [Left Radial] 75 Respiratory Rate 20 Blood Pressure [Left Arm] 143/90 H Blood Pressure Mean [Left Arm] 107 02 Sat by Pulse Oximetry 98 Lab Data Lab results reviewed: Yes I reviewed the patient's lab results.
[2024-07-25 09:06] VITALS: BP 143/90; PULSE 75; RESP 20; TEMP 36.9
== END 2024-07-25 09:08 | disposition home or self-care (01) ==
PROVIDERS: Emergency Provider Nurse Practitioner Family; PCP Nurse Practitioner Family
DX: J20.9 Acute bronchitis, unspecified (principal); J01.90 Acute sinusitis, unspecified
CPT/HCPCS: 99213; G0381

== ENCOUNTER 2024-08-20 19:14 | Emergency (ER) | payer OTHER, SELFPAY ==
[2024-08-20 20:05] VITALS: BP 119/70; PULSE 85; RESP 17; TEMP 36.8; O2SAT 98; BMI 39.6
--- NOTE | 2024-08-20 20:11 | ED_ITS ---
Discharge Plan Disposition Patient Disposition: Home, Self-Care Condition: Good Prescriptions Prescriptions: New doxycycline hyclate 100 mg capsule 100 mg PO BID Qty: 20 0RF prednisone 20 mg tablet 20 mg PO BID 5 Days Qty: 10 0RF benzonatate 100 mg capsule 100 mg PO TID PRN (Reason: cough) Qty: 30 0RF guaifenesin [Mucinex] 600 mg tablet extended release 12hr 600 - 1,200 mg PO BID PRN (Reason: cough) Qty: 20 0RF No Action omeprazole 20 mg capsule,delayed release(DR/EC) 20 mg PO ONCE lisinopril 10 MG tablet 10 mg PO DAILY aspirin 81 MG tablet,chewable 81 mg PO DAILY Referrals Follow up/Referrals: Kiana Reinoso [Primary Care Provider] - See instructions Activity Restrictions/Add. Instructions Additional Instructions/Restrictions: * Start antibiotic today. Be sure to complete entire prescription even if feeling better * Monitor temp. Tylenol every 4 hours as needed and / or ibuprofen every 6 hours as needed ( As long as your primary care physician has told you that it ok to take both. For fever/aches/pains ER if no less than 101 despite Tylenol or Motrin * Humidifier/vaporizer or hot steamy shower * Mucinex for your cough Be sure to drink lots of water. *Start steroid today. Helps with inflammation therefore, cough and wheezing. Follow directions on the package. Reviewed side effects. Patient reports taking them before. Follow up IMMEDIATELY for new or worsening of symptoms OR no noticeable improvement over the next 48-72 hours. 911 immediately for any life threatening symptoms such as chest pain or difficulty breathing Clinical Impressions Clinical Impression: Sinusitis, Bronchitis Instructions Patient Instructions: Acute Bronchitis, DI for Sinusitis Print Language Print Language: Pashto Discharge ED Provider: Usha Paz [facility] [place] HPI General Stated complaint: Cough Time Seen by Provider: 08/20/24 20:11 History of Present Illness Provider Complaint: Patient states that she was seen and treated the end of June for Bronchitis States that she is not sure if totally cleared up States that for about a week now her cough has returned, having sinus pain and pressure and drainage in the back of her throat States that she wanted to get checked before it got as bad as it was before Related Data Home Medications ?Medication ?Instructions ?Recorded ?Confirmed omeprazole 20 mg capsule,delayed 20 mg PO ONCE GERD 09/09/17 08/20/24 release aspirin 81 mg chewable tablet 81 mg PO DAILY Heart disease 04/29/21 08/20/24 lisinopril 10 mg tablet 10 mg PO DAILY Hypertension 04/29/21 08/20/24 Previous Rx's ?Medication ?Instructions ?Recorded benzonatate 100 mg capsule 100 mg PO TID PRN cough #30 caps 08/20/24 doxycycline hyclate 100 mg capsule 100 mg PO BID #20 caps 08/20/24 guaifenesin 600 mg tablet, 600 - 1,200 mg (1 - 2 x 600 mg) PO 08/20/24 extended release 12 hr (Mucinex) BID PRN cough #20 tabs prednisone 20 mg tablet 20 mg PO BID 5 days #10 tabs 08/20/24 Allergies Allergy/AdvReac Type Severity Reaction Status Date / Time latex (LATEX) Allergy Unknown Verified 07/08/23 09:47 [facility] Disclaimer: The information contained in this section may have been updated after the patient was seen, as this information can be updated by other users. 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 current occupational exposures/hazards: No caffeine: Yes Have you lived/traveled outside [place] in past 30 days?: No Contact w/someone who lives/traveled outside [place] past 30 days?: No Exposure to someone with infectious disease in past 14 days?: No Do you have a fever (greater than 100.4 F or 38 C)?: No Have you tested positive for COVID-19: No Exposed to someone with COVID-19 in past 14 days?: No Do you have a sore throat?: No Do you have a cough?: Yes Do you have any weakness?: No Do you have any diarrhea?: No Are you experiencing any unusual bleeding?: No Do you have any muscle aches/pain?: No Do you have any abdominal pain?: No Are you experiencing loss of taste or smell?: No ROS Obtained: Yes All systems reviewed & no additional complaints except as documented and Yes Systems reviewed as appropriate & no additional complaints except as documented Constitutional Constitutional: Reports system reviewed and no additional complaints, except as documented and Reports as per HPI ENT Ears, Nose, Mouth, and Throat: Reports system reviewed and no additional complaints, except as documented, Reports as per HPI, Reports sinus pain and Reports sinus pressure Cardiovascular Cardiovascular: Reports system reviewed and no additional complaints, except as documented and Reports as per HPI Respiratory Respiratory: Reports system reviewed and no additional complaints, except as documented, Reports as per HPI, Denies shortness of breath, Reports chest congestion and Reports cough Gastrointestinal Gastrointestingal: Reports system reviewed and no additional complaints, except as documented and as per HPI Physical Exam General General appearance: alert and in no apparent distress ENT ENT exam: Present mucous membranes moist Expanded ENT Exam Nose exam: Present sinus tenderness Throat exam: Present other (PND noted) Respiratory Respiratory exam: Present normal lung sounds bilaterally; Absent respiratory distress or wheezes Cardiovascular Cardiovascular exam: Present regular rate, normal rhythm and normal heart sounds Abdominal Exam Abdominal exam: Present soft and normal bowel sounds; Absent distention or tenderness Neurological Exam Neurological exam: Present alert, oriented X3 and normal gait Medical Decision Making Medical Records Screening: Per USPSTF and CDC recommendations, given the prevalence of disease in our region, it is our hospital?s policy to screen for HIV and viral Hepatitis for all patients aged 18 and over and those with ongoing risk factors. Jose Francisco Inquiry Pt receiving controlled substance: No Jose Francisco was queried for this patient: No
[2024-08-20 20:19] VITALS: BP 119/70; PULSE 85; RESP 17; TEMP 36.8; O2SAT 98
== END 2024-08-20 20:26 | disposition home or self-care (01) ==
PROVIDERS: Emergency Provider Nurse Practitioner; PCP Nurse Practitioner Family
DX: J20.9 Acute bronchitis, unspecified (principal); J01.90 Acute sinusitis, unspecified
CPT/HCPCS: 99213; G0381